=== PATIENT | female | born 1950 | race Caucasian/White ===

== ENCOUNTER 2017-02-09 13:04 | Inpatient (IN) | payer OTHER ==
[~2017-02-09] VITALS: Ht 154.9 cm; Wt 86.0 kg
--- NOTE | ~2017-02-09 | HP ---
Unit #: [id number] #: [id number] Patient: JOSEF SHAW [id number] [facility] [address] [facility]. [place], [place] [address] [id number] MR#: [id number] NAME: JOSEF SHAW ROOM: 333 Age: 66 Sex: F Admission Date: 02/09/2017 : 1950 Attending Physician: Rosita Fowler M.D. Primary Care Physician: Saumya Forbes M.D. HISTORY AND PHYSICAL CHIEF COMPLAINT Elevated potassium and low sodium. HISTORY OF PRESENT ILLNESS The patient is a 66-year-old female with a past medical history of hypertension, hyperlipidemia, and diabetes, who presented to the emergency department for evaluation of the above. The patient states that she has not been feeling well for about two weeks. She reports increasing generalized weakness and fatigue. She has had nausea, but no vomiting. She reports decreased appetite. She denies any abdominal pain, no diarrhea, and no urinary symptoms. She apparently saw her primary care physician at [facility] on February 07, 2017. She was called on the and told to come back due to abnormal labs. She was given IV fluids and additional blood work was drawn. Today, she was called and told to come to the emergency department due to abnormal labs. In the emergency department, sodium was noted to be 121, potassium 5.1, and BUN and creatinine 28 and 1.6, respectively. She was given a total of two liters of normal saline. Urinalysis shows findings concerning for urinary tract infection, and she was given a gram of Rocephin. She is being admitted to [facility] for evaluation and further treatment. PAST MEDICAL HISTORY 1. Patient was hospitalized at [facility] more than five years ago (no records). 2. Hypertension. 3. Hyperlipidemia. 4. Diabetes. PAST SURGICAL HISTORY 1. Tonsillectomy. 2. Appendectomy. SOCIAL HISTORY The patient lives alone. She quit smoking 16 years ago. She has a 30 pack-year smoking history. She denies alcohol use. She is retired from [employer]. She typically walks without assistance. Her code status is a Full Code. FAMILY HISTORY Notable for her mother dying at the age of 39 of a "female malignancy," possibly ovarian cancer. Her dad at the age of 63 of a myocardial Unit #: [id number] #: [id number] Patient: JOSEF SHAW infarction. ALLERGIES No known allergies. HOME MEDICATIONS 1. Zestril 40 mg daily. 2. Actos 30 mg daily. 3. Lipitor 20 mg daily. 4. Iron 325 mg twice daily. 5. Norvasc 10 mg daily. 6. Benazepril 40 mg daily. 7. Glucophage 1000 mg twice daily. REVIEW OF SYSTEMS A complete review of systems is negative except as indicated in the History of Present Illness. The patient states that she has lost about 10 pounds over the past two weeks. The patient states that she does not routinely check blood sugars at home. PHYSICAL EXAMINATION VITAL SIGNS: Temperature is 97.9, pulse 77, respirations 18, blood pressure 126/72, and oxygen saturation 100% on room air. GENERAL: Patient is a very pleasant female who is awake, alert, and in no acute distress. HEENT: Head is atraumatic. Mucous membranes are moist. NECK: Supple. Trachea is midline. CARDIOVASCULAR: Regular rate and rhythm. LUNGS: Clear to auscultation bilaterally with no increased work of breathing. ABDOMEN: Soft and nontender with bowel sounds present in all four quadrants. EXTREMITIES: Nontender with no pedal edema. NEUROLOGIC: Patient is awake and alert. She is oriented x3. She follows commands. PSYCHIATRIC: Mood and affect are normal. Patient is cooperative. SKIN: Skin of examined areas is warm and dry. The patient does have scattered ecchymoses including one in the left antecubital fossa. DIAGNOSTIC STUDIES LABORATORY: Comprehensive metabolic panel notable for a sodium of 121, chloride 93, glucose 123, and BUN and creatinine 28 and 1.6, respectively. Urinalysis notable for 2+ leukocyte esterase and 10-20 white blood cells. Complete blood count notable for hemoglobin and hematocrit of 11.8 and 36, respectively. ASSESSMENT The patient is a 66-year-old female with: 1. General weakness. 2. Hyponatremia. The patient's sodium is 121 with no baseline for comparison. She does seem to be hypovolemic and has had decreased appetite. 3. Acute kidney injury. The patient's creatinine is 1.6 with no baseline for comparison. She is on Zestril, as well as benazepril and Glucophage which could be contributing. 4. Urinary tract infection. The patient received Rocephin in the emergency department. 5. Hypertension. Unit #: [id number] #: [id number] Patient: JOSEF SHAW 6. Hyperlipidemia. 7. Diabetes. 8. Former smoker. PLAN 1. Admit to intermediate level for observation. 2. Normal saline at 75 mL/hour. 3. Bedrest. 4. Fall precautions. 5. PT/OT to evaluate and treat. 6. Urine sodium and osmolality. 7. Serum osmolality. 8. Chest x-ray, PA and lateral, for further evaluation of hyponatremia. 9. BMP q.6 hours to follow up hyponatremia and hyperkalemia. 10. Consult Dr. Vines regarding hyponatremia. 11. Check EKG and cardiac enzymes. 12. Urine culture and sensitivity on urine in the lab. 13. Rocephin 1 gram IV daily pending results of urine culture. 14. Hemoglobin A1c. 15. Low-dose sliding scale insulin with Accu-Cheks. 16. Advance diet to healthy heart/consistent carbohydrate diet as tolerated. 17. P.r.n. Zofran. 18. Check CPK. 19. Hold medications that could be contributing to acute kidney injury including Zestril, benazepril, and Glucophage. 20. SCDs for DVT prophylaxis. 21. Repeat labs in the morning. 22. Additional workup and consultants based on above. 1. Dictated by Serena Horvath/cuate TD: 02/09/2017 22:09 JOB #: [id number] HISTORY AND PHYSICAL Page 1 of 1 X Rosita Fowler MD HISTORY AND PHYSICAL
--- NOTE | ~2017-02-09 | HM ---
Unit #: [id number] #: [id number] Patient: JOSEF SHAW [id number] [address] [address] [id number] I MR#: [id number] NAME: JOSEF SHAW. : 1950 SEX: F STUDY DATE/TIME: 02/16/2017 UNIT: [id number] PCU ROOM: 333 STUDY DESCRIPTION: Holter monitor Attending Physician: Russell Finch M.D. Primary Care Physician: Saumya Forbes M.D. CARDIOLOGY REPORT EXAM Holter monitor. DATE APPLIED February 10, 2017. DATE SCANNED February 13, 2017. ORDERED BY Mariam Damon M.D. READ BY Ramez Cotton M.D. INDICATION Palpitations. SUMMARY The patient was monitored for 24 hours. A total of 102,140 QRS complexes were analyzed. There was less than 1% ventricular ectopic and supraventricular ectopic beats. The rhythm was sinus. The average heart rate was 74 beats per minute. The minimum heart rate of 56 beats per minute occurred at 9:26 a.m. The maximum heart rate of 175 beats per minute occurred at approximately 5 p.m. There were no pauses noted. SUPRAVENTRICULAR ECTOPY: There were 479 total beats with 2 runs totalling 10 beats. The longest and fastest run was 7 beats in duration at 175 beats per minute at approximately 5:19 p.m. VENTRICULAR ECTOPY: A total of 35 isolated beats with no runs. SYMPTOMS: None. PATIENT ACTIVATED EVENTS: None. IMPRESSION Normal Holter monitor with nonsustained, clinically insignificant SVT. Dictated by... Ramez Cotton M.D. Unit #: [id number] #: [id number] Patient: JOSEF SHAW PJR/db TD: 02/16/2017 10:22 JOB #: [id number] CARDIOLOGY REPORT Page 1 of 1 X Ramez Cotton MD HOLTER MONITOR REPORT
--- NOTE | ~2017-02-09 | CO ---
Unit #: [id number] #: [id number] Patient: YEE SHAW [id number] [address] [place], [place] [address] [id number] I MR#: [id number] NAME: YEE SHAW. ROOM: 333 Age: 66 Sex: F Admission Date: 02/09/2017 : 1950 Attending Physician: Russell Finch M.D. Primary Care Physician: Saumya Forbes M.D. Consultation Date: 02/10/2017 CONSULTATION REPORT REASON FOR CONSULTATION Renal insufficiency. Thank you very much for asking me to see this patient in consultation. HISTORY OF PRESENT ILLNESS Ms. Yee Shaw is a 66-year-old female, who has had a couple of week history of weakness, fatigue, nausea, no vomiting. She has had decreased appetite. No swelling. No diarrhea, but she had blood work done at her primary doctor's office, and apparently due to abnormal electrolytes, her hydrochlorothiazide was stopped on Monday. Repeat labs are abnormal. At which time, her primary told her to come to the hospital, at which time, she did. She was noted to have a sodium of 121 with a BUN and creatinine of 28 and 1.6 upon admission yesterday afternoon and because of this, I was asked to see the patient. The patient was started on normal saline at 75 mL an hour. The patient states she is feeling a little bit better, still tired. No chest pain. No shortness of breath. No nausea now. No vomiting. No urinary symptoms. She denies any nonsteroidal use. PAST MEDICAL HISTORY History of hypertension x10 years; history of hyperlipidemia; history of diabetes mellitus; on oral agents x10 years; status post appendectomy; status post cholecystectomy. She denies any frequent UTIs, nephrolithiasis, or kidney problems. ALLERGIES No known drug allergies. SOCIAL HISTORY She lives alone. Previous smoker, none now. No alcohol. MEDICATIONS At home include Actos, Lipitor, FeSO4, Norvasc, benazepril 40 mg a day, Glucophage 1000 mg b.i.d., and she was on 25 mg of hydrochlorothiazide until after Monday. Currently, here she was started on Rocephin, normal saline at 75, amlodipine. REVIEW OF SYSTEMS As mentioned in the HPI. She denies any fevers, chills, visual problems, sinus problems. No cough or hemoptysis. No neck pain or neck stiffness. No chest pain, chest heaviness, or palpitations. She denies any heart disease. She denies any lung disease. She denies any GI problems. She denies again swelling, any recent seizures, strokes, or skin rashes. Unit #: [id number] #: [id number] Patient: YEE SHAW PHYSICAL EXAMINATION GENERAL: She is alert and oriented. VITAL SIGNS: Temperature is 97.9, pulse 59 to 77, blood pressure is 96 to 145 over 44 to 72. She had 1080 in and out recorded x3. HEENT: She is normocephalic and atraumatic. Pupils are equal, round, and reactive to light. Extraocular muscles are intact. Hearing appears to be normal. Mouth is clear. No erythema. No exudate. NECK: Supple. No JVD. CARDIAC: She has regular rate without a rub. No S3 or S4. LUNGS: Clear bilaterally. No wheezes, rhonchi, or rales. ABDOMEN: Obese. Bowel sounds positive. Nontender. Soft. EXTREMITIES: She has no edema, clubbing, or cyanosis. SKIN: She has some intermittent bruising. : Deferred. DIAGNOSTIC STUDIES LABORATORY RESULTS: Again upon admission showed a sodium 121 with BUN and creatinine of 28 and 1.6. Upon today, sodium is up to 131, potassium of 5, chloride is 104, bicarb is 20, BUN of 24, creatinine 1.5, glucose of 98. Albumin is 3.8, CPK was only 40, calcium is 7.9. Hemoglobin is 11.9, white count 7800, platelets 236,000. Her UA shows specific gravity of 1.015, no proteinuria, no hematuria. She did have 10 to 25 wbc's with urine culture pending. IMAGING STUDIES: Her chest x-ray showed cardiomegaly, but no failure. ASSESSMENT AND PLAN 1. Acute kidney injury. This is a lady who has increased BUN and creatinine. Upon presentation, I do not have any previous creatinine on her at this time, but certainly she could have some acute renal insufficiency related to volume depletion versus other. I agree with stopping her hydrochlorothiazide again and holding her VIRI inhibitor for now and see where her renal function does. She has no proteinuria or hematuria, so I if doubt she has any active glomerulonephritis. We will go ahead and check a serum protein immunofixation. Check renal ultrasound. Depending on what this shows and depending on how the renal function does with some mild hydration, we will defer any further workup and treatment, hopefully discharge tomorrow. 2. Hyponatremia, improving most likely secondary to hydrochlorothiazide. We will check cortisol level, TSH, urine sodium, urine osmolarity and continue mild IV fluids. 3. Probable urinary tract infection. Await culture results. Continue Rocephin. Dictated by... Roney Vines M.D. YUDI/keyon TD: 02/11/2017 02:44 JOB #: [id number] Unit #: [id number] #: [id number] Patient: YEE SHAW CONSULTATION REPORT Page 1 of 1 X Kb Vines MD X CONSULTATION REPORT
--- NOTE | ~2017-02-09 | EKG ---
PATIENT: JOSEF SHAW UNIT #: [id number] Ventricular Rate: 58 BPM Atrial Rate: 58 BPM P-R Interval: 162 ms QRS Duration: 90 ms Q-T Interval: 402 ms QTC Calculation(Bezet): 394 ms P Winslow: 60 degrees Calculated R Winslow: 5 degrees Calculated T Winslow: 28 degrees Diagnosis Line: Sinus bradycardia Diagnosis Line: Otherwise normal ECG Diagnosis Line: No previous ECGs available Diagnosis Line: Confirmed by LAKISHA GALEANA MD ([id number]) on Diagnosis Line: 02/10/2017 7:33:18 AM INTERPRETING MD: LISSETT PAULA
--- NOTE | ~2017-02-09 | CR63 ---
[facility] A Service of [facility] RADIOLOGY TEXT RESULTS PATIENT: JOSEF SHAW LOCATION: [facility] 333-01 : [birth year] UNIT #: [id number] AGE: [address]: Russell Finch MD SEX: F ORDER DR: [id number] [facility] [address] [facility] [place], [place] [address] [id number] I MR#: [id number] #: [id number] NAME: JOSEF SHAW. : 1950 SEX: F STUDY DATE/TIME: 02/09/2017 20:56 UNIT: [address] ROOM: [facility] STUDY DESCRIPTION: CR Chest 2 View Attending Physician: Rosita Fowler M.D. Ordering Physician: Rosita Fowler M.D. Primary Care Physician: Saumya Forbes M.D. MEDICAL IMAGING REPORT This report is preliminary unless electronic signature is present EXAM 2-view chest 02/09/2017 HISTORY 66-year-old female with shortness of air beginning today. COMPARISON Chest 12/07/2006 FINDINGS 2 views of the chest demonstrate stable cardiomegaly. Mediastinum and pulmonary vasculature unremarkable. Lungs are clear. No pneumothorax. IMPRESSION Stable cardiomegaly. No other acute chest findings. Dictated by... Javid Thomson M.D. THIS IS AN ELECTRONICALLY VERIFIED REPORT Javid Thomson M.D. at 02/10/2017 10:03 AM WINSTON/pearl TD: 02/10/2017 04:31 JOB #: [id number] MEDICAL IMAGING REPORT Page 1 of 1 COPY
--- NOTE | ~2017-02-09 | DS ---
Unit #: [id number] #: [id number] Patient: JOSEF SHAW [id number] [address] [address] [id number] I MR#: [id number] NAME: JOSEF SHAW. ROOM: [facility] Age: 66 Sex: F Admission Date: 02/09/2017 : 1950 Discharge Date: 02/11/2017 Attending Physician: Russell Finch M.D. Primary Care Physician: Saumya Frobes M.D. DISCHARGE SUMMARY PRINCIPAL DIAGNOSES ON DISCHARGE 1. Hyponatremia, secondary to thiazide diuretics. 2. Acute kidney injury. 3. Hyperkalemia. 4. Urinary tract infection. SECONDARY DIAGNOSES 1. Hypertension. 2. Dyslipidemia. 3. Diabetes. DISCHARGE MEDICATIONS 1. Levofloxacin 500 mg p.o. x1 on February 12, 2017. 2. Amlodipine 10 mg daily. 3. Metformin 1000 mg p.o. b.i.d. 4. Lipitor 20 mg daily. 5. Iron 325 mg p.o. b.i.d. The patient is to hold benazepril, Zestril, Actos, and any thiazide diuretics. HISTORY OF PRESENT ILLNESS/BRIEF HOSPITAL COURSE Ms. Shaw is a 66-year-old female who presented to primary care physician at [facility] complaining of generalized weakness and fatigue. Blood work was obtained and she was called back the day prior to admission with abnormal lab results. Her sodium was noted to be 121, potassium 5.1 with creatinine of 1.6 and BUN of 28. The patient presented to the emergency room with these findings. She was given 2 L of normal saline. A UA was suggestive of urinary tract infection and urine culture was obtained. The patient was started on Rocephin. Repeat labs of the patient on the same day showed a sodium of 126. The patient was admitted to the hospital for observation. Nephrology was consulted and they agreed that the cause of the hyponatremia was likely related to thiazide diuretics that the patient had been on until a few days prior to her admission. The patient's sodium was monitored closely and it gradually improved to 127, then 131. Today, the patient's sodium is 136. She is now asymptomatic. Her potassium was initially noted to be elevated at 5.1 and decreased to 4.8 today. Her VIRI inhibitors were discontinued as well as her Actos until further notice. Today, the patient would like to go home. A TSH and Cortisol level were checked and they were within normal limits. The patient is ambulating and tolerating p.o. diet and considered to be stable now for discharge. DISPOSITION Home. Unit #: [id number] #: [id number] Patient: JOSEF SHAW CONDITION Improved. FOLLOWUP APPOINTMENT The patient is to follow up with her primary care physician at [facility] within a week and with Dr. Vines from nephrology in four to six weeks. The patient was instructed to return to the emergency room in case she has any worsening symptoms. Dictated by... Kevin Jasso M.D. LAURIE/rula TD: 02/13/2017 09:50 JOB #: [id number] DISCHARGE SUMMARY Page 1 of 1 X X DISCHARGE SUMMARY
--- NOTE | ~2017-02-09 | EKG ---
PATIENT: JOSEF SHAW UNIT #: [id number] Ventricular Rate: 65 BPM Atrial Rate: 65 BPM P-R Interval: 152 ms QRS Duration: 94 ms Q-T Interval: 378 ms QTC Calculation(Bezet): 393 ms P Summit: 66 degrees Calculated R Summit: 40 degrees Calculated T Summit: 36 degrees Diagnosis Line: Normal sinus rhythm Diagnosis Line: Normal ECG Diagnosis Line: When compared with ECG of 09-FEB-2017 18:57, Diagnosis Line: (unconfirmed) Diagnosis Line: No significant change was found Diagnosis Line: Confirmed by LAKISHA GALEANA MD ([id number]) on Diagnosis Line: 02/10/2017 7:34:37 AM INTERPRETING MD: LISSETT PAULA
--- NOTE | ~2017-02-09 | US77 ---
[facility] A Service of [facility] RADIOLOGY TEXT RESULTS PATIENT: JOSEF SHAW LOCATION: [facility] : 50 UNIT #: [id number] AGE: [address]: Russell Finch MD SEX: F ORDER DR: [id number] [place] [id number] [facility]. [place], [place] [address] [id number] I MR#: [id number] Acc #: [id number] NAME: JOSEF SHAW : 1950 SEX: F STUDY DATE/TIME: 02/10/2017 9:21 UNIT: [facility] PCU ROOM: [facility] STUDY DESCRIPTION: US Kidney Bilateral Complete Attending Physician: Russell Finch M.D. Ordering Physician: Roney Vines M.D. Primary Care Physician: Saumya Forbse M.D. MEDICAL IMAGING REPORT This report is preliminary unless electronic signature is present EXAM Renal ultrasound. INDICATIONS Patient reports her blood work is off. BUN is 24, creatinine is 1.5 GFR is 35.9. TECHNIQUE Serrato-scale and color Doppler sonographic images were obtained through the kidneys and bladder. FINDINGS There is limited visualization of the right kidney but it appears to measure within normal size limits. There is no cortical thinning and no hydronephrosis is seen. Left kidney is normal in appearance. No solid or cystic renal masses are identified on either side. There is no hydronephrosis on the left. Patient's urinary bladder appears unremarkable. IMPRESSION Somewhat limited visualization of the right kidney otherwise unremarkable exam. Dictated by... Chelsi Omer M.D. THIS IS AN ELECTRONICALLY VERIFIED REPORT Chelsi Omer M.D. at 02/10/2017 5:50 PM AFF/dj TD: 02/10/2017 11:39 JOB #: [id number] [facility] A Service [facility] RADIOLOGY TEXT RESULTS PATIENT: JOSEF SHAW LOCATION: [facility] [address] : 50 UNIT #: [id number] AGE: [address]: Russell Finch MD SEX: F ORDER DR: MEDICAL IMAGING REPORT Page 1 of 1 COPY
[2017-02-09 14:07] LABS: BASOPHIL# 0.1 X10e3 (0-0.3); EOSINOPHIL# 0.1 X10e3 (0-0.7); EOSINOPHIL% 0.7 % (0.0-7.0); HEMOGLOBIN 11.8 gm/dL (12.0-16.0); LYMPHOCYTE# 1.9 X10e3 (1.0-3.5); LYMPHOCYTE% 21.5 % (17.0-45.0); MEAN CELL VOLUME 85.2 FL (83-96); MEAN CORPUSCULAR HEMOGLOBIN 27.9 PG (28-34); MEAN CORPUSCULAR HGB CONC 32.8 g/dL (30-36); MEAN PLATELET VOLUME 8.7 FL (6.5-11.5); MONOCYTE# 0.8 X10e3 (0-1.0); MONOCYTE% 9.5 % (3.0-12.0); NEUTROPHIL# 5.8 X10e3 (1.5-7.1); NEUTROPHIL% 67.3 % (40-75); PLATELET COUNT 339 X10e3 (140-420); RED BLOOD COUNT 4.23 X10e (3.90-5.30); RED CELL DISTRIBUTION WIDTH 14.6 % (11.0-15.5); WHITE BLOOD COUNT 8.7 X10e3 (4.0-10.5)
[2017-02-09 14:14] LABS: DIFF IND NO
[2017-02-09 14:23] LABS: URINE SOURCE CLEAN CATCH
[2017-02-09 14:53] LABS: URINE APPEARANCE CLEAR; URINE BILIRUBIN NEG (NEG); URINE BLOOD NEG (NEG); URINE COLOR YELLOW; URINE GLUCOSE NEG (NEG); URINE KETONE NEG (NEG); URINE LEUKOCYTE ESTERASE 2+ (NEG); URINE NITRATE NEG (NEG); URINE PROTEIN NEG (NEG); URINE SPECIFIC GRAVITY 1.012 (1.003-1.035); URINE UROBILINOGEN 0.2 MG/DL (NEG)
[2017-02-09 14:55] LABS: CULTURE INDICATED? YES; URBCS1 AUWI 0-2 /[HPF] (0-2); URINE BACTERIA AUWI NEG (NEGATIVE); URINE SQUAMOUS EPITHELIAL CELL OCC /[HPF]
[2017-02-09 15:21] LABS: ALBUMIN SERUM 3.8 g/dL (3.5-5.0); BUN/CREATININE RATIO 17.5; CALCIUM SERUM 8.7 mg/dL (8.4-10.2); CREATININE SERUM 1.6 mg/dL (0.6-1.4); GLOM FILT RATE Estimated 33.2 mL/min (>60); POTASSIUM 5.1 mmol/L (3.5-5.1); PROTEIN TOTAL SERUM 6.5 g/dL (6.0-8.3)
[2017-02-09] MEDS ORDERED: PATIENT'S PHARMACY (16:55)
[2017-02-09] MEDS ORDERED: LIPITOR20 MG PO (16:56)
[2017-02-09] MEDS ORDERED: IRON325 MG PO (16:56)
[2017-02-09] MEDS ORDERED: BENAZEPRIL HCL40 MG PO (16:56)
[2017-02-09] MEDS ORDERED: ACTOS PO (16:56)
[2017-02-09] MEDS ORDERED: LISINOPRIL PO (16:56)
[2017-02-09] MEDS ORDERED: METFORMIN PO (16:56)
[2017-02-09] MEDS ORDERED: NORVASC10 MG PO (16:56)
[2017-02-09 19:45] LABS: BUN/CREATININE RATIO 17.14; CREATININE SERUM 1.4 mg/dL (0.6-1.4); GLOM FILT RATE Estimated 39.1 mL/min (>60); POTASSIUM 4.9 mmol/L (3.5-5.1)
[2017-02-09 19:53] LABS: CK TOTAL 38 IU/L (26-140)
[2017-02-10 02:20] LABS: CALCIUM SERUM 7.9 mg/dL (8.4-10.2)
[2017-02-10 02:21] LABS: BUN/CREATININE RATIO 19.23; CREATININE SERUM 1.3 mg/dL (0.6-1.4); GLOM FILT RATE Estimated 42.7 mL/min (>60)
[2017-02-10 03:00] LABS: CK TOTAL 33 IU/L (26-140)
[2017-02-10 05:30] LABS: HEMATOCRIT 36.3 % (35.0-45.0); HEMOGLOBIN 11.9 gm/dL (12.0-16.0); MEAN CELL VOLUME 85.3 FL (83-96); MEAN CORPUSCULAR HEMOGLOBIN 27.8 PG (28-34); MEAN CORPUSCULAR HGB CONC 32.6 g/dL (30-36); MEAN PLATELET VOLUME 7.4 FL (6.5-11.5); RED BLOOD COUNT 4.26 X10e (3.90-5.30); RED CELL DISTRIBUTION WIDTH 14.9 % (11.0-15.5); WHITE BLOOD COUNT 7.8 X10e3 (4.0-10.5)
[2017-02-10 06:34] LABS: ALBUMIN SERUM 3.6 g/dL (3.5-5.0); BILIRUBIN,TOTAL 0.7 mg/dL (0.2-2.0); CALCIUM SERUM 8.6 mg/dL (8.4-10.2); CREATININE SERUM 1.5 mg/dL (0.6-1.4); GLOM FILT RATE Estimated 35.9 mL/min (>60); PROTEIN TOTAL SERUM 6.4 g/dL (6.0-8.3)
[2017-02-10 13:47] LABS: SODIUM URINE RANDOM 86 mmol/L
[2017-02-10 15:20] LABS: OSMOLALITY,URINE 309 mOsmo/kg (250-900)
[2017-02-11 08:55] LABS: BUN/CREATININE RATIO 13.63; CALCIUM SERUM 8.7 mg/dL (8.4-10.2); CREATININE SERUM 1.1 mg/dL (0.6-1.4); GLOM FILT RATE Estimated 52.3 mL/min (>60); POTASSIUM 4.8 mmol/L (3.5-5.1)
[2017-02-11] MEDS ORDERED: LEVAQUIN PO (16:01)
== END 2017-02-11 17:23 | disposition home or self-care (01) | DRG 683 ==
LOC: CED 13:04 → CEDOF 18:35 → CED 18:35 → C3A PCU 18:35 → CEDOF 21:13 → C3A PCU 21:13
PROVIDERS: Emergency Medicine; Family Medicine; Internal Medicine Nephrology
DX: N17.9 Acute kidney failure, unspecified (principal); E87.1 Hypo-osmolality and hyponatremia; I10 Essential (primary) hypertension; N39.0 Urinary tract infection, site not specified; T50.2X5A Adverse effect of carbonic-anhydrase inhibitors, benzothiadiazides and other diuretics, initial encounter; E87.5 Hyperkalemia; E11.9 Type 2 diabetes mellitus without complications; Z87.891 Personal history of nicotine dependence; Z80.41 Family history of malignant neoplasm of ovary
CPT/HCPCS: 71020; 76770; 80048; 80053; 81003; 82533; 82550; 82947; 83036; 83930; 83935; 84300; 84443; 84484; 85025; 85027; 86334; 87086; 89190; 93005; 93225; 93226; 96361; 96365; 99285; J0696; J1815